=== PATIENT | male | born 1980 | race Caucasian/White ===

== ENCOUNTER 2017-06-16 13:22 | Emergency (ER) | payer OTHER, MEDICAID ==
[2017-06-16] MEDS: IBUPROFEN 800 MG TAB PO (17:53)
== END 2017-06-16 20:24 | disposition home or self-care (01) ==
LOC: FTE 13:22
DX: S92.902A Unspecified fracture of left foot, initial encounter for closed fracture (principal); W10.9XXA Fall (on) (from) unspecified stairs and steps, initial encounter; Y92.9 Unspecified place or not applicable
CPT/HCPCS: 73610; 73630-LT; 73660; 99284-25